=== PATIENT | male | born 1945 | race Caucasian/White ===

== ENCOUNTER 2017-10-02 11:28 | Observation (INO) ==
--- NOTE | 2017-10-02 12:34 | ED ---
HPI General Chief Complaint: Chest Pain Stated Complaint: chest pain Time Seen by Provider: 10/02/17 12:17 History of Present Illness HPI narrative: Patient presents to the emergency department complaining of shortness of breath and chest pain that started last night has intensified. He has a history of COPD but states that this does not feel like COPD. Also complaining of a productive cough with yellow phlegm. Chest pain described as being left-sided, intermittent, 10-15 seconds in duration, nonradiating, no alleviating or aggravating factors. Today he took a total of 4, 325 milligram aspirin over the course of 6-8 hours. Took 325 mg of aspirin at 9 AM today. He travel from [place]. He denies fever, chills, nausea, vomiting, lower extremity edema, hemoptysis, history of PE/DVT, malignancy. He denies current chest pain. [place] x 2 in 2004 and . Complete Quality Measures for STEMI Alert Patients Related Data Home Medications Medication Instructions Recorded Confirmed albuterol sulfate [Ventolin HFA] 2 puff INHALATION Q4H PRN 10/02/17 10/02/17 aspirin [Aspirin Low Dose] 81 mg PO DAILY 10/02/17 10/02/17 atorvastatin [Lipitor] 40 mg PO HS 10/02/17 10/02/17 lisinopril [Prinivil] 20 mg PO DAILY 10/02/17 10/02/17 Allergies Allergy/AdvReac Type Severity Reaction Status Date / Time penicillin G Allergy Unknown Shortness Verified 10/02/17 11:51 of Breath Review of Systems ROS Unobtainable All other systems reviewed negative except as stated in HPI [facility] Medical History Medical History Chronic obstructive pulmonary disease (COPD) (Acute) Hyperlipidemia (Acute) Hypertension (Acute) Myocardial infarct (Acute) Stroke (Acute) Surgical History Surgical History H/O heart artery stent (Acute) History of cholecystectomy (Acute) Social History Social History Substance History: No History of Abuse Second Hand Smoke Exposure: Yes Smoking Status: Current every day smoker Tobacco Type: Cigarettes How Often Do You Have a Drink Containing Alcohol: Never Recent Travel in [facility] within the Last 8 Weeks: No Recent Out of Country Travel within the Last 8 Weeks: No Immunization History Tetanus Immunization: >5 Years Exam Narrative Exam Narrative: GENERAL: No acute distress SKIN: Focused skin assessment warm/dry. HEAD: Atraumatic. Normocephalic. EYES: Pupils equal and round. No scleral icterus. No injection or drainage. ENT: No nasal bleeding or discharge. Mucous membranes pink and moist. NECK: Trachea midline. No JVD. CARDIOVASCULAR: Regular rate and rhythm. No murmur appreciated. RESPIRATORY: No accessory muscle use. Clear to auscultation. Breath sounds equal bilaterally. GASTROINTESTINAL: Abdomen soft, non-tender, nondistended. Hepatic and splenic margins not palpable. MUSCULOSKELETAL: No obvious deformities. No clubbing. No cyanosis. No edema. NEUROLOGICAL: Awake and alert. No obvious cranial nerve deficits. Motor grossly within normal limits. Normal speech. PSYCHIATRIC: Appropriate mood and affect; insight and judgment normal. Course Initial Documented Vital Signs Temperature 98.5 F 10/02/17 11:33 Pulse Rate 98 H 10/02/17 11:33 Respiratory Rate 18 10/02/17 11:33 Blood Pressure 198/82 H 10/02/17 11:33 Pulse Oximetry 97 10/02/17 11:33 Last Documented Vital Signs Temperature 98.5 F 10/02/17 11:33 Pulse Rate 90 10/02/17 15:31 Respiratory Rate 18 10/02/17 15:31 Blood Pressure 142/65 H 10/02/17 15:31 Pulse Oximetry 98 10/02/17 15:31 Medical Decision Making MDM Narrative Medical decision making narrative: Patient presents to the emergency department with chest pain and shortness of breath. Patient placed on personnel monitor, continuous pulse ox, IV access obtained. EKG/chest x-ray/labs ordered. Patient took 325 mg of aspirin this 1 will not given aspirin in the ER. He denies current chest pain. ECG: Sinus tachycardia 101, QTC 393, normal axis, PACs, T-wave in 2/3/aVF which was present on EKG October 22, 2013, T-wave inversion in aVL CXR-Hyperinflation without infiltrate Labs: Slight decrease wbc, elevated d-dimer, troponin and CK wnl CTA: CONCLUSION:1. Negative for pulmonary embolus.2. Moderate centrilobular emphysema with apical parenchymal pleural scarring.3. Mildly enlarged AP window and subcarinal lymph nodes. 1554: BP 142/68. Patient will be admitted to chest pain obs Differential Diagnosis Differential Diagnosis: COPD exacerbation, bronchitis, PE, ACS, pneumonia Lab Data Result diagrams: 10/02/17 12:35 10/02/17 13:45 Lab Results 10/02/17 10/02/17 10/02/17 Range/Units 12:35 12:35 13:45 WBC 3.7 L (4.0-11.0) th/mm3 RBC 4.59 (4.50-5.90) mil/mm3 Hgb 14.5 (13.0-17.0) gm/dL Hct 41.4 (39.0-51.0) % MCV 90.4 (80.0-100.0) fL MCH 31.6 (27.0-34.0) pg MCHC 35.0 (32.0-36.0) % RDW 13.6 (11.6-17.2) % Plt Count 214 (150-450) th/mm3 MPV 8.1 (7.0-11.0) fL Neut % (Auto) 56.3 (16.0-70.0) % Lymph % (Auto) 23.4 (9.0-44.0) % Erie % (Auto) 18.6 H (0.0-8.0) % Eos % (Auto) 0.7 (0.0-4.0) % Baso % (Auto) 1.0 (0.0-2.0) % Neut # (Auto) 2.1 (1.8-7.7) th/mm3 Lymph # (Auto) 0.9 L (1.0-4.8) th/mm3 [place]rie # (Auto) 0.7 (0.0-0.9) th/mm3 Eos # (Auto) 0.0 (0.0-0.4) th/mm3 Baso # (Auto) 0.0 (0.0-0.2) th/mm3 WBC Differential . Differential Comment Auto diff final PT (9.8-11.6) sec INR Ratio APTT (24.3-30.1) sec D-Dimer Quant (PE/DVT) 0.59 H (0.00-0.50) mg/L FEU Sodium (136-145) meq/L Potassium (3.5-5.1) meq/L Chloride (98-107) meq/L Carbon Dioxide (21.0-32.0) meq/L Anion Gap (5-15) meq/L BUN (7-18) mg/dL Creatinine (0.60-1.30) mg/dL Estimated GFR (>89) mL/min Random Glucose (74-106) mg/dL Calcium (8.5-10.1) mg/dL Magnesium (1.5-2.5) mg/dL Total Bilirubin (0.2-1.0) mg/dL AST (15-37) U/L ALT (12-78) U/L Alkaline Phosphatase (45-117) U/L Total Creatine Kinase (39-308) U/L Troponin I (0.02-0.05) ng/mL B-Natriuretic Peptide 9 (0-100) pg/mL Total Protein (6.4-8.2) g/dL Albumin (3.4-5.0) g/dL 10/02/17 10/02/17 Range/Units 13:45 13:45 WBC (4.0-11.0) th/mm3 RBC (4.50-5.90) mil/mm3 Hgb (13.0-17.0) gm/dL Hct (39.0-51.0) % MCV (80.0-100.0) fL MCH (27.0-34.0) pg MCHC (32.0-36.0) % RDW (11.6-17.2) % Plt Count (150-450) th/mm3 MPV (7.0-11.0) fL Neut % (Auto) (16.0-70.0) % Lymph % (Auto) (9.0-44.0) % Erie % (Auto) (0.0-8.0) % Eos % (Auto) (0.0-4.0) % Baso % (Auto) (0.0-2.0) % Neut # (Auto) (1.8-7.7) th/mm3 Lymph # (Auto) (1.0-4.8) th/mm3 Erie # (Auto) (0.0-0.9) th/mm3 Eos # (Auto) (0.0-0.4) th/mm3 Baso # (Auto) (0.0-0.2) th/mm3 WBC Differential Differential Comment PT 10.8 (9.8-11.6) sec INR 1.1 Ratio APTT 29.3 (24.3-30.1) sec D-Dimer Quant (PE/DVT) (0.00-0.50) mg/L FEU Sodium 130 L (136-145) meq/L Potassium 4.9 (3.5-5.1) meq/L Chloride 95 L (98-107) meq/L Carbon Dioxide 26.1 (21.0-32.0) meq/L Anion Gap 9 (5-15) meq/L BUN 8 (7-18) mg/dL Creatinine 0.87 (0.60-1.30) mg/dL Estimated GFR 86 L (>89) mL/min Random Glucose 88 (74-106) mg/dL Calcium 8.2 L (8.5-10.1) mg/dL Magnesium 1.5 (1.5-2.5) mg/dL Total Bilirubin 0.4 (0.2-1.0) mg/dL AST 28 (15-37) U/L ALT 23 (12-78) U/L Alkaline Phosphatase 83 (45-117) U/L Total Creatine Kinase 86 (39-308) U/L Troponin I Less than 0.02 L (0.02-0.05) ng/mL B-Natriuretic Peptide (0-100) pg/mL Total Protein 6.7 (6.4-8.2) g/dL Albumin 3.3 L (3.4-5.0) g/dL Imaging Data Radiologist's impression: ITS Impressions Chest X-Ray 10/02/17 12:29 CONCLUSION: Hyperinflation without infiltrate. Chest CTA 10/02/17 14:17 CONCLUSION: 1. Negative for pulmonary embolus. 2. Moderate centrilobular emphysema with apical parenchymal pleural scarring. 3. Mildly enlarged AP window and subcarinal lymph nodes. Discharge Plan Discharge Disposition Patient Disposition: 30 Still Patient Discharge Condition Condition: Stable Discharge Details Discharge Problem: Chest pain Physicians Team ED Provider: Yamila Estrella Primary Care Provider: Uriah Dawson Rxs /Orders / Referrals /Forms Prescriptions: No Action lisinopril [Prinivil] 20 mg Tablet 20 mg PO DAILY RF: 0 atorvastatin [Lipitor] 40 mg Tablet 40 mg PO HS RF: 0 aspirin [Aspirin Low Dose] 81 mg Tablet,Delayed Release (Dr/Ec) 81 mg PO DAILY RF: 0 albuterol sulfate [Ventolin HFA] 90 mcg/actuation Hfa Aerosol Inhaler 2 puff INHALATION Q4H PRN (Reason: Shortness Of Breath Or Wheezing) RF: 0 Discharge Instructions Patient Printed Instructions: Chest Pain (ED) Discharge Interventions Interventions: Vital Signs Last Done: 10/02/17 15:31 Status ED Status: With Doctor
[2017-10-02 12:57] LABS: Eos % (Auto) 0.7 % (0.0-4.0); Hematocrit 41.4 % (39.0-51.0); Hemoglobin 14.5 gm/dL (13.0-17.0); Lymph # (Auto) 0.9 th/mm3 (1.0-4.8); Lymph % (Auto) 23.4 % (9.0-44.0); Mean Corpuscular Hemoglobin 31.6 pg (27.0-34.0); Mean Corpuscular Volume 90.4 fL (80.0-100.0); Mean Platelet Volume 8.1 fL (7.0-11.0); Mono # (Auto) 0.7 th/mm3 (0.0-0.9); Mono % (Auto) 18.6 % (0.0-8.0); Neut # (Auto) 2.1 th/mm3 (1.8-7.7); Neut % (Auto) 56.3 % (16.0-70.0); Platelet Count 214 th/mm3 (150-450); Red Blood Count 4.59 mil/mm3 (4.50-5.90); Red Cell Distribution Width 13.6 % (11.6-17.2); White Blood Count 3.7 th/mm3 (4.0-11.0)
--- NOTE | 2017-10-02 13:15 | XR ---
EXAM DATE: 10/02/2017 1:07 PM EDT AGE/SEX: 72 years / Male INDICATIONS: Pain in lower left chest and across lower back with shortness of breath. CLINICAL DATA: This is the patient's initial encounter. Patient reports that signs and symptoms have been present for 1 day and indicates a pain score of 5/10. MEDICAL/SURGICAL HISTORY: Chronic obstructive pulmonary disease. Myocardial infarction. . Card iac stents. COMPARISON: POI, XR CHEST PA AND LAT, 05/07/2016. . FINDINGS: A single AP view of the chest demonstrates the lungs to be hyperaerated without evidence of mass, inf iltrate or effusion. The cardiomediastinal contours are unremarkable. Osseous structures are intact . CONCLUSION: Hyperinflation without infiltrate. Electronically signed by: Prosper Vincent MD 10/02/2017 1:14 PM EDT
[2017-10-02 14:10] LABS: Activated Partial Thrombo Time 29.3 sec (24.3-30.1); INR 1.1 Ratio
[2017-10-02 14:11] LABS: Prothrombin Time 10.8 sec (9.8-11.6)
[2017-10-02 14:19] LABS: Anion Gap 9 meq/L (5-15)
[2017-10-02 14:23] LABS: Alanine Aminotransferase 23 U/L (12-78); Albumin 3.3 g/dL (3.4-5.0); Alkaline Phosphatase 83 U/L (45-117); Aspartate Aminotransferase 28 U/L (15-37); Blood Urea Nitrogen 8 mg/dL (7-18); Calcium 8.2 mg/dL (8.5-10.1); Carbon Dioxide 26.1 meq/L (21.0-32.0); Chloride 95 meq/L (98-107); Glomerular Filtration Rate 86 mL/min (>89); Glucose,Random 88 mg/dL (74-106); Magnesium 1.5 mg/dL (1.5-2.5); Sodium 130 meq/L (136-145); Total Protein 6.7 g/dL (6.4-8.2)
[2017-10-02 14:26] LABS: Creatine Kinase 86 U/L (39-308); Potassium 4.9 meq/L (3.5-5.1)
[2017-10-02] MEDS ORDERED: ALPRAZolam 0.25 MG Tablet PO PRN (16:53)
[2017-10-02] MEDS ORDERED: MethylPREDNISolone Sod Succinate Inj 40 MG/ML Vial IV.PUSH ONE (16:55)
--- NOTE | 2017-10-02 17:19 | P.HPCA ---
History of Present Illness Primary Care Physician: Uriah Dawson Chief Complaint: Chest pain and shortness of breath History of Present Illness: This is a 72-year-old male the presents to ED with complaint of chest discomfort and shortness of breath that began last evening. This occurred a few times. Last about 30 seconds when it does happen. He has history of CAD and states he had a stent in 2004 and as well as either 2006 2007. Is not followed by carding machine operator. Does not feel similar to when needing stents in the past. He was short of breath with the symptoms but states this was not unusual with his history of COPD. Denies nausea or diaphoresis. There is family history of CAD. Patient continues to smoke 1 pack a series daily. Denies illicit drugs. Occasional alcohol. He has had heart catheterization with stenting 2. He has had cholecystectomy. - Diagnosis (1) HTN (hypertension) (2) COPD (chronic obstructive pulmonary disease) (3) Tobacco abuse (4) HLD (hyperlipidemia) (5) History of CVA (cerebrovascular accident) (6) Chest pain - Inpatient Certification If this patient has been admitted as an Inpatient: I certify that the inpatient services were ordered in accordance with Medicare regulations governing the order. This includes certification that hospital inpatient services are reasonable and necessary and in the case of services not specified as inpatient-only under 42 CFR 419.22(n), that they are appropriately provided as inpatient services in accordance to with the 2-midnight benchmark under 43 CFR 412.3(e) Review of Systems General: Patient denies fevers, chills. HEENT: Patient denies headache, sore throat, difficulty swallowing. Cardiovascular: Has the chest discomfort as mentioned above. Denies sensation of heart beating rapidly or irregularly. No syncope. Denies diaphoresis. Respiratory: Chronic shortness of breath. Clear colored cough 2 weeks. Wheezing. Denies hemoptysis. Denies inspirational chest pain. GI: Patient denies nausea, vomiting, diarrhea, abdominal pain, bloody stools. Musculoskeletal: Patient denies joint pain or edema. Denies calf pain or edema. Neurovascular: Patient denies numbness, tingling, weakness in extremities. Denies headache. Endocrine: Denies polyuria and polydipsia. Hematologic: Denies easy bruising. Skin: Denies rash or itching. PMFSH - History History Provided By: Patient - Medical History Medical History: Medical History (Last Updated 10/02/17 @ 11:55 by Sherlyn Campbell) Chronic obstructive pulmonary disease (COPD) Hyperlipidemia Hypertension Myocardial infarct Stroke - Surgical History Surgical History: Surgical History (Last Updated 10/02/17 @ 11:56 by Sherlyn Campbell) H/O heart artery stent History of cholecystectomy - Tobacco History Second Hand Smoke Exposure: Yes Tobacco Use In Past 30 Days: Yes Smoking Status: Current every day smoker Tobacco Type: Cigarettes - Alcohol History How Often Do You Have a Drink Containing Alcohol: Never - Substance Use History Substance History: No History of Abuse - Travel History Recent Travel in the [place] Within the Last 8 Weeks: No Recent Travel Out of the Country Within the Last 8 Weeks: No - Immunization History Tetanus Immunization: >5 Years Medications and Allergies Active Medications: Active Medications Hydrocodone Bitart/Acetaminophen ([place] 7.5/325) 1 tab PO Q4H PRN PRN Reason: pain scale 4-10 Albuterol (Duoneb Neb (Prn)) 1 ampul NEB Q4HR NEB PRN PRN Reason: SHORTNESS OF BREATH/WHEEZING Alprazolam (Xanax) 0.25 mg PO Q8H PRN PRN Reason: ANXIETY Aspirin (Aspirin) 325 mg PO DAILY LYNNE Atorvastatin Calcium (Lipitor) 40 mg PO HS LYNNE Clonidine HCl (Catapres) 0.1 mg PO Q6H PRN PRN Reason: SBP >165 OR DBP > 110 Lisinopril (Prinivil) 20 mg PO DAILY LYNNE Ondansetron HCl (Zofran Odt) 4 mg PO Q6H PRN PRN Reason: NAUSEA Pantoprazole Sodium (Protonix) 40 mg PO DAILY LYNNE Sodium Chloride (Ns Flush) 2 ml IV.FLUSH BID LYNNE Sodium Chloride (Ns Flush) 2 ml IV.FLUSH PRN PRN PRN Reason: FLUSH AFTER USING IV ACCESS Allergies Allergy/AdvReac Type Severity Reaction Status Date / Time penicillin G Allergy Unknown Shortness Verified 10/02/17 11:51 of Breath Home Medications Medication Instructions Recorded Confirmed Type albuterol sulfate [Ventolin HFA] 2 puff INHALATION Q4H PRN 10/02/17 10/02/17 History aspirin [Aspirin Low Dose] 81 mg PO DAILY 10/02/17 10/02/17 History atorvastatin [Lipitor] 40 mg PO HS 10/02/17 10/02/17 History lisinopril [Prinivil] 20 mg PO DAILY 10/02/17 10/02/17 History Exam Vital signs: Vital Signs 10/02/17 11:33 10/02/17 11:57 10/02/17 12:28 Temperature 98.5 F Pulse Rate 98 H 96 H Respiratory Rate 18 20 Blood Pressure 198/82 H 173/81 H Pulse Oximetry 97 96 98 10/02/17 15:31 10/02/17 16:53 Temperature Pulse Rate 90 82 Respiratory Rate 18 16 Blood Pressure 142/65 H 160/74 H Pulse Oximetry 98 98 Intake & Output 10/01/17 10/02/17 10/02/17 18:59 06:59 18:59 Weight 64.41 kg Narrative: GENERAL: This is a well-nourished, well-developed patient, in no apparent distress. Patient speaks in clear complete sentences. Patient is pleasant. HEENT: Head is atraumatic and normocephalic. Neck is supple without lymphadenopathy and trachea is midline. No JVD or carotid bruits. CARDIOVASCULAR: Regular rate and rhythm without murmurs, gallops, or rubs. RESPIRATORY: Diffuse expiratory wheezing. No rales or rhonchi. Chest wall is nontender. No use of accessory muscles. GASTROINTESTINAL: Abdomen is nontender, nondistended. Abdomen soft. No obvious pulsatile mass or bruit. No CVA tenderness. Strong femoral pulses bilaterally. Normal bowel sounds in all quadrants. MUSCULOSKELETAL: Patient is moving upper and lower extremities freely. No calf tenderness or edema, no Homans sign. Strong pulses in upper and lower extremities. NEUROLOGICAL: Patient is alert and oriented. Cranial nerves 2-12 are grossly intact. No focal deficits and speech is clear. SKIN: No rash and turgor is normal. Results 10/02/17 12:35 10/02/17 13:45 Cardiac Enzymes 10/02/17 10/02/17 Range/Units 12:35 13:45 AST 28 (15-37) U/L Troponin I Less than 0.02 L (0.02-0.05) ng/mL B-Natriuretic Peptide 9 (0-100) pg/mL Coagulation 10/02/17 10/02/17 Range/Units 12:35 13:45 PT 10.8 (9.8-11.6) sec APTT 29.3 (24.3-30.1) sec B-Natriuretic Peptide 9 (0-100) pg/mL CBC 10/02/17 Range/Units 12:35 WBC 3.7 L (4.0-11.0) th/mm3 RBC 4.59 (4.50-5.90) mil/mm3 Hgb 14.5 (13.0-17.0) gm/dL Hct 41.4 (39.0-51.0) % Plt Count 214 (150-450) th/mm3 Neut # (Auto) 2.1 (1.8-7.7) th/mm3 Lymph # (Auto) 0.9 L (1.0-4.8) th/mm3 Esmeralda # (Auto) 0.7 (0.0-0.9) th/mm3 Eos # (Auto) 0.0 (0.0-0.4) th/mm3 Baso # (Auto) 0.0 (0.0-0.2) th/mm3 Comprehensive Metabolic Panel 10/02/17 Range/Units 13:45 Sodium 130 L (136-145) meq/L Potassium 4.9 (3.5-5.1) meq/L Chloride 95 L (98-107) meq/L Carbon Dioxide 26.1 (21.0-32.0) meq/L BUN 8 (7-18) mg/dL Creatinine 0.87 (0.60-1.30) mg/dL Calcium 8.2 L (8.5-10.1) mg/dL AST 28 (15-37) U/L ALT 23 (12-78) U/L Alkaline Phosphatase 83 (45-117) U/L Total Protein 6.7 (6.4-8.2) g/dL Albumin 3.3 L (3.4-5.0) g/dL Intake and Output 10/02/17 10/02/17 10/02/17 06:59 14:59 22:59 Other: Weight 64.41 kg Patient Weight 10/03/17 06:59 Weight 64.41 kg EKG interpretations - Dysrhythmias Sinus rhythms and dysrhythmias: sinus tachycardia (Initial EKG is sinus tachycardia rate of [address] segment depressions or elevation. PVC is noted.) Caprini VTE Risk Assessment Caprini VTE Risk Assessment: Moderate/High Risk (score >= 2) Caprini Risk Assessment Model: Point Value = 1 Point Value = 2 Point Value = 3 Point Value = 5 Age 41-60 Minor surgery BMI > 25 kg/m2 Swollen legs Varicose veins or History of unexplained or recurrent spontaneous Oral contraceptives or hormone replacement Sepsis (< 1 month) Serious lung disease, including pneumonia (< 1 month) Abnormal pulmonary function Acute myocardial infarction Congestive heart failure (< 1 month) History of inflammatory bowel disease Medical patient at bed rest Age 61-74 Arthroscopic surgery Major open surgery (> 45 min) Laparoscopic surgery (> 45 min) Malignancy Confined to bed (> 72 hours) Immobilizing plaster cast Central venous access Age >= 75 History of VTE Family history of VTE Factor V Leiden Prothrombin [id number] Lupus anticoagulant Anticardiolipin antibodies Elevated serum homocysteine Heparin-induced thrombocytopenia Other congenital or acquired thrombophilia Stroke (< 1 month) Elective arthroplasty Hip, pelvis, or leg fracture Acute spinal cord injury (< 1 month) Prophylaxis Regimen: Total Risk Factor Score Risk Level Prophylaxis Regimen 0-1 Low Early ambulation 2 Moderate Order ONE of the following: *Sequential Compression Device (SCD) *Heparin 5000 units SQ BID 3-4 Higher Order ONE of the following medications: *Heparin 5000 units SQ TID *Enoxaparin/Lovenox 40 mg SQ daily (WT < 150 kg, CrCl > 30 mL/min) *Enoxaparin/Lovenox 30 mg SQ daily (WT < 150 kg, CrCl > 10-29 mL/min) *Enoxaparin/Lovenox 30 mg SQ BID (WT < 150 kg, CrCl > 30 mL/min) AND/OR *Sequential Compression Device (SCD) 5 or more Highest Order ONE of the following medications: *Heparin 5000 units SQ TID (Preferred with Epidurals) *Enoxaparin/Lovenox 40 mg SQ daily (WT < 150 kg, CrCl > 30 mL/min) *Enoxaparin/Lovenox 30 mg SQ daily (WT < 150 kg, CrCl > 10-29 mL/min) *Enoxaparin/Lovenox 30 mg SQ BID (WT < 150 kg, CrCl > 30 mL/min) AND *Sequential Compression Device (SCD) Assessment and Plan - Assessment (1) HTN (hypertension) Code(s): I10 - Essential (primary) hypertension Status: Acute (2) COPD (chronic obstructive pulmonary disease) Code(s): J44.9 - Chronic obstructive pulmonary disease, unspecified Status: Acute (3) Tobacco abuse Code(s): Z72.0 - Tobacco use Status: Acute (4) HLD (hyperlipidemia) Code(s): E78.5 - Hyperlipidemia, unspecified Status: Acute (5) History of CVA (cerebrovascular accident) Code(s): Z86.73 - Personal history of transient ischemic attack (TIA), and cerebral infarction without residual deficits Status: Acute (6) Chest pain Code(s): R07.9 - Chest pain, unspecified Status: Acute - Plan * Chest pain: Patient will continue to have serial cardiac enzymes and EKGs for ruling out purposes. He has been seen by Dr. Kael Hernandez of cardiology in the [facility]. He will undergo a Lexiscan in the morning if he rules out. Patient will be discharged home if the stress test is nonischemic with instructions to follow-up with PCP and return to ED for interval issues. He should also have follow-up with outpatient carding machine operator. * Hypertension: Continue medication. * Hyperlipidemia: Continue medication. * COPD: Have DuoNeb's as needed. He was wheezing quite a bit. Also give a dose of IV Solu-Medrol. He needs to quit smoking. This was explained to him extensively. * History of CVA: Continue medication. Again patient was counseled importance of smoking cessation. * Tobacco abuse: Patient counseled on importance of smoking cessation. Patient is stable at this time. He is agreeable to this plan. (6) Chest pain Qualifiers: Chest pain type: unspecified Qualified Code(s): R07.9 - Chest pain, unspecified
[2017-10-02 19:40] LABS: Creatine Kinase 96 U/L (39-308)
[2017-10-03 01:26] LABS: Creatine Kinase 77 U/L (39-308)
[2017-10-03 04:57] LABS: Bilirubin,Urine Negative (Negative); Clarity,Urine Clear (Clear); Color,Urine Yellow (Yellw/Straw); Glucose,Urine (UA) Negative (Negative); Leukocyte Esterase,Urine Negative (Negative); Mucus,Urine Few /lpf (Occasional); Nitrite,Urine Negative (Negative); Specific Gravity,Urine 1.033 (1.002-1.035)
[2017-10-03] MEDS ORDERED: Aspirin 325 MG Tablet PO SCH (09:00)
[2017-10-03] MEDS ORDERED: Lisinopril 20 MG Tablet PO SCH (09:00)
--- NOTE | 2017-10-03 10:08 | ECG ---
Date Performed: 10/03/2017 Time Performed: 00:10:45 PTAGE: 72 years EKG: Sinus rhythm POSSIBLE INFERIOR MYOCARDIAL INFARCTION BORDERLINE ECG PREVIOUS TRACING : 10/02/2017 18.16 DOCTOR: Vega Escobar Interpretating Date/Time 10/03/2017 10:07:27
--- NOTE | 2017-10-03 10:09 | ECG ---
Date Performed: 10/02/2017 Time Performed: 18:16:08 PTAGE: 72 years EKG: Sinus rhythm WITH SINUS ARRHYTHMIA POSSIBLE INFERIOR MYOCARDIAL INFARCTION BORDERLINE ECG Rate has slowed somewha t and loss of R-wave in V2 V3 but otherwise largely unchanged PREVIOUS TRACING : 10/02/2017 11.42 DOCTOR: Vega Escobar Interpretating Date/Time 10/03/2017 10:09:35
--- NOTE | 2017-10-03 10:10 | ECG ---
Date Performed: 10/02/2017 Time Performed: 11:42:20 PTAGE: 72 years EKG: SINUS TACHYCARDIA WITH OCCASIONAL VENTRICULAR PREMATURE COMPLEXES POSSIBLE LEFT ATRIAL ENLA RGEMENT POSSIBLE INFERIOR MYOCARDIAL INFARCTION ABNORMAL RHYTHM ECG PREVIOUS TRACING : 10/22/2013 22.16 DOCTOR: Vega Escobar Interpretating Date/Time 10/07/2017 07:27:54
[2017-10-03] MEDS ORDERED: MethylPREDNISolone Sod Succinate Inj 40 MG/ML Vial IV.PUSH ONE (11:00)
[2017-10-03] MEDS ORDERED: Regadenoson Inj 0.4 MG/5 ML Syringe IV.PUSH ONE (11:24)
--- NOTE | 2017-10-03 12:51 | NM ---
EXAM DATE: 10/03/2017 12:41 PM EDT AGE/SEX: 72 years / Male INDICATIONS:Angina. Myocardial infarction Left chest pain with dyspnea. CLINICAL DATA: This is the patient's initial encounter. Patient reports that signs and symptoms have been present for 1 day and indicates a pain score of 7/10. MEDICAL/SURGICAL HISTORY: Chronic obstructive pulmonary disease. Hypercholesterolemia. Hypert ension. Stroke. Coronary artery stent. Cholecystectomy. COMPARISON: No prior exams available for comparison. DOSE: 26.5 mCi Tc 99m Myoview at stress 8.1 mCi [id number] at rest 0.4 mg Lexiscan STRESS SYMPTOMS: Short of breath. EJECTION FRACTION: > 70 % TECHNIQUE: The patient underwent pharmacologic stress with infusion of prescribed dose. Continuous ECG tracing was monitored during stress. Gated SPECT imaging was performed after stress and conventi onal SPECT imaging was performed at rest. The examination was performed on a SPECT/CT scanner, both attenuation and non-corrected datasets were reviewed. FINDINGS: Distribution: The maximum perfused segment at stress is in the anterolateral wall. Perfusion Study: The pattern of perfusion at stress is within normal limits. Gated Study: There are intact wall motion and wall thickening without hypokinetic or dyskinetic segm ents. The ejection fraction is calculated at > 70%. RISK CATEGORY: Low (<1% Annual Motality Rate) CONCLUSION: Negative examination. Electronically signed by: Uriah Eller MD 10/03/2017 12:49 PM EDT
--- NOTE | 2017-10-14 17:45 | TR ---
Date Performed: 10/03/2017 Time Performed: 11:16:23 DOCTOR: Kael Hernandez DRUG LIST: CLINICAL HISTORY: REASON FOR TEST: REASON FOR ENDING: OBSERVATION: CONCLUSION: COMMENTS: Lexiscan stress test was performed under standard four minute protocol. Radionuclide was injected one minute prior to ending the test. No electrocardiographic abormalities were present t o suggest ischemia. Nuclear imaging and interpretation are pending.
== END 2017-10-03 15:08 | disposition home or self-care (01) ==
LOC: NEPHCDU 11:28 → NEPC 11:28 → NEDA 11:28 → NEPHCDU 18:09
PROVIDERS: ADMIT Internal Medicine Cardiovascular Disease; ATTEND Internal Medicine Cardiovascular Disease